=== PATIENT | female | born 1945 | race Caucasian/White ===

== ENCOUNTER → 2018-12-15 | Day surgery (SDC) | payer MEDICARE, OTHER ==
[~2018-12-15] MED LIST: Lactated Ringers 1,000 ML IV SCH; Propofol 200 MG/20 ML SDV IV ONE
--- NOTE | 2018-12-15 11:34 | OR ---
DATE OF OPERATION: 12/15/2018 PREOPERATIVE DIAGNOSIS: FAMILY HISTORY OF COLON CANCER. POSTOPERATIVE DIAGNOSIS: FAMILY HISTORY OF COLON CANCER. SURGEON: Marcel Sheldon MD PROCEDURE: FULL-LENGTH COLONOSCOPY. 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 COMPLICATIONS: None. SPECIMEN: None. FINDINGS: 1. Full-length colonoscopy. 2. [id number]-[id number] sigmoid diverticulosis. RECOMMENDATIONS: Followup colonoscopy every 5 years. INDICATIONS: The patient just learnt her brother was diagnosed with colon cancer. Her last colonoscopy was well over 5 years ago. We elected to proceed with procedure. DESCRIPTION OF PROCEDURE: The patient was prepped and draped, placed in the left lateral decubitus position. A lubricated Olympus colonoscope was inserted and easily advanced to the cecum. Direct visualization of the ileocecal valve and appendiceal orifice was accomplished. The bowel prep was fine. Upon withdrawal of the scope, throughout the entire length of the colon, I could find no signs of any polyps, mass, ulceration, bleeding sites, or vascular abnormalities, or signs of colitis. The patient does have scattered diverticula, mild to moderate in severity in the sigmoid colon. Retroflexion of scope in the rectum showed no perianal lesions. Air was suctioned, scope removed without complication. EMANUEL/JONATHAN /[id number]
== END ==
LOC: CC.SDS 08:50
PROVIDERS: ATTEND Family Medicine
DX: Z12.11 Encounter for screening for malignant neoplasm of colon (principal); K57.30 Diverticulosis of large intestine without perforation or abscess without bleeding; Z80.0 Family history of malignant neoplasm of digestive organs; Z88.2 Allergy status to sulfonamides
CPT/HCPCS: 93005; J2704; J7120

== ENCOUNTER 2024-06-15 10:09 | Day surgery (SDC) | payer MEDICARE, OTHER ==
[~2024-06-15 10:09] MED LIST changes: -Propofol 200 MG/20 ML SDV IV ONE
[2024-06-15] MEDS ORDERED: Propofol 200 MG/20 ML SDV ONE (10:48)
[2024-06-15] MEDS ORDERED: fentaNYL 50 MCG/ML SDV ONE (10:48)
[2024-06-15] MEDS ORDERED: Ketamine 200 MG/20 ML MDV ONE (10:48)
[2024-06-15] MEDS: Lactated Ringers 1,000 ML IV SCH (10:51)
== END 2024-06-15 12:12 | disposition home or self-care (01) ==
LOC: CC.SDS 10:09
PROVIDERS: ATTEND Family Medicine
DX: Z12.11 Encounter for screening for malignant neoplasm of colon (principal); K57.30 Diverticulosis of large intestine without perforation or abscess without bleeding; K64.9 Unspecified hemorrhoids; E78.00 Pure hypercholesterolemia, unspecified; I10 Essential (primary) hypertension; Z79.82 Long term (current) use of aspirin; Z79.899 Other long term (current) drug therapy; Z88.2 Allergy status to sulfonamides; Z80.0 Family history of malignant neoplasm of digestive organs
CPT/HCPCS: 00812; 99100; J2704; J3010; J3490; J7120

== ENCOUNTER 2024-07-06 09:44 | Day surgery (SDC) | payer MEDICARE ==
[2024-07-06] MEDS: Lactated Ringers 1,000 ML IV SCH (10:16)
[2024-07-06] MEDS ORDERED: Ketamine 200 MG/20 ML MDV ONE (10:35)
[2024-07-06] MEDS ORDERED: Lidocaine 2% 20 ML MDV ONE (10:35)
[2024-07-06] MEDS ORDERED: fentaNYL 50 MCG/ML SDV ONE (10:35)
[2024-07-06] MEDS ORDERED: Propofol 200 MG/20 ML SDV ONE (10:35)
== END 2024-07-06 11:53 | disposition home or self-care (01) ==
LOC: CC.SDS 09:44
PROVIDERS: ATTEND Family Medicine
DX: K29.51 Unspecified chronic gastritis with bleeding (principal); B96.81 Helicobacter pylori [H. pylori] as the cause of diseases classified elsewhere; K31.A0 Gastric intestinal metaplasia, unspecified; I10 Essential (primary) hypertension; E78.00 Pure hypercholesterolemia, unspecified; Z79.82 Long term (current) use of aspirin; Z79.899 Other long term (current) drug therapy; Z88.2 Allergy status to sulfonamides
CPT/HCPCS: 00731; 87081; 88305; 99100; J2704; J3010; J3490; J7120